=== PATIENT | female | born 1935 | race Caucasian/White ===

== ENCOUNTER 2024-09-05 09:35 | Emergency (ER) | payer MEDICARE, SELFPAY ==
[2024-09-05 09:44] VITALS: BP 88/63
--- NOTE | 2024-09-05 10:01 | ED.GENMED ---
History of Present Illness
<Cory Wilkerson DO - Last Filed: 09/05/24 15:59>
General
Chief Complaint: Weakness
Source: patient, spouse and ambulance crew
Exam Limitations: none
Nursing documentation reviewed up to this point in time: agreed with
History of Present Illness
History of Present Illness:
88-year-old female presents emergency department due to fatigue, exhaustion and low back pain for 1 week.
Past History
<VY Yanez - Last Filed: 09/05/24 15:05>
Past History
ED Past Medical History: HTN, Hypercholesterolemia, [place], Hypothyroidism and Other (dementia)
ED Past Surgical History: Gynecological (Hysterectomy, Bilateral tubal ligation)
Social History
Tobacco: Non-smoker
Alcohol: Occasional
Drug: None
Personal:
Review of Systems
<Cory Wilkerson, DO - Last Filed: 09/05/24 15:59>
Review of Systems
Allergies reviewed?: Yes
All Other Systems: Not applicable
Constitutional: Reports fatigue
EENT: Reports no symptoms
Respiratory: Reports no symptoms
Cardiac: Reports no symptoms
ABD/GI: Reports no symptoms
: Reports no symptoms
Musculoskeletal: Reports back pain
Skin: Reports no symptoms
Neurological: Reports weakness
Endocrine: Reports no symptoms
Hematologic/Lymphatic: Reports no symptoms
Psychiatric: Reports no symptoms
Phy Exam
<Cory Wilkerson DO - Last Filed: 09/05/24 15:59>
Physical Exam
Physical Exam:
Physical Exam
General: no apparent distress, not acutely ill
Neck: supple. no meningeal signs. normal posterior pharynx
Heart: s1/s2 tachycardia, irregular rhythm, no murmur. equal radial
pulses.
HEENT: Pupils equal round reactive to light, EOMI
Lungs: no acute respiratory distress. clear bilaterally
Abdomen: normal bowel sounds. not tender. no CVAT
Neuro: alert and oriented. no focal neurological deficits cranial nerves II through XII intact
Skin: no rash
Psychiatric: well kept. interactive and cooperative
Extremities: no edema. no calf tenderness. negative homans. good distal pulses
Course
<Cory Wilkerson, DO - Last Filed: 09/05/24 15:59>
Orders/Labs/Results
Orders:
Orders
09/05/24 10:11
Electrocardiogram (*1) Urgent
Reason for Study: Fatigue / Weakness
09/05/24 10:12
EKG- Treatment ONCE
09/05/24 10:16
EKG- Treatment ONCE
IV Insert/Care/Rem.- Treatment PRN
09/05/24 10:17
Electrocardiogram (*1) Urgent
Reason for Study: Fatigue / Weakness
CMP [Comprehensive Metabolic Panel] Urgent
Complete Blood Count/With Diff Urgent
09/05/24 10:23
COVID-19 Antigen Urgent
Source: Nasal Swab
Influenza A+B Rapid Molecular Urgent
MARCE Source: Nasal Swab
Specimen Description:
09/05/24 11:34
EKG- Treatment ONCE
09/05/24 12:41
Potassium Chloride 10% Elixir [KCl Elixir] 40 meq PO NOW STA
09/05/24 13:23
Urinalysis Reflex To Culture Urgent
Date Specimen was Collected: 09/05/24
Time Specimen was Collected: 13:18
Urine Microscopic Reflex Cult Urgent
09/05/24 13:26
0.9% Sodium Chloride 1000 ml [Nss] 1,000 ml IV BOLUS
Abnormal Lab Results
09/05/24 09/05/24
10:17 13:23
MPV 10.6 H fL
(7.4-10.4)
Absolute Monos (auto) 0.8 H 10^3/uL
(0.1-0.6)
Monocytes % 9.4 H %
(1.7-9.3)
Potassium 3.3 L mmol/L
(3.5-5.1)
BUN 28 H mg/dl
(7-17)
Glucose 143 H mg/dl
(70-99)
Leukocyte Esterase Rfl Trace A
(Negative)
Urine Bacteria (Reflex) Few A
(Negative)
09/05/24 10:17
09/05/24 10:17
Vital Signs
Initial and Last Documented VS:
Initial Vital Signs
Temp Pulse Resp BP Pulse Ox
98.5 F 70 18 88/63 95
09/05/24 09:44 09/05/24 09:44 09/05/24 09:44 09/05/24 09:44 09/05/24 09:44
Last Documented Vital Signs
Temp Pulse Resp BP Pulse Ox
98.5 F 68 18 110/66 99
09/05/24 09:44 09/05/24 14:32 09/05/24 14:32 09/05/24 14:32 09/05/24 14:32
<VY Yanez - Last Filed: 09/05/24 15:05>
Orders/Labs/Results
Orders:
Orders
09/05/24 10:11
Electrocardiogram (*1) Urgent
Reason for Study: Fatigue / Weakness
09/05/24 10:12
EKG- Treatment ONCE
09/05/24 10:16
EKG- Treatment ONCE
IV Insert/Care/Rem.- Treatment PRN
09/05/24 10:17
Electrocardiogram (*1) Urgent
Reason for Study: Fatigue / Weakness
CMP [Comprehensive Metabolic Panel] Urgent
Complete Blood Count/With Diff Urgent
09/05/24 10:23
COVID-19 Antigen Urgent
Source: Nasal Swab
Influenza A+B Rapid Molecular Urgent
MARCE Source: Nasal Swab
Specimen Description:
09/05/24 11:34
EKG- Treatment ONCE
09/05/24 12:41
Potassium Chloride 10% Elixir [KCl Elixir] 40 meq PO NOW STA
09/05/24 13:23
Urinalysis Reflex To Culture Urgent
Date Specimen was Collected: 09/05/24
Time Specimen was Collected: 13:18
Urine Microscopic Reflex Cult Urgent
09/05/24 13:26
0.9% Sodium Chloride 1000 ml [Nss] 1,000 ml IV BOLUS
Abnormal Lab Results
09/05/24 09/05/24
10:17 13:23
MPV 10.6 H fL
(7.4-10.4)
Absolute Monos (auto) 0.8 H 10^3/uL
(0.1-0.6)
Monocytes % 9.4 H %
(1.7-9.3)
Potassium 3.3 L mmol/L
(3.5-5.1)
BUN 28 H mg/dl
(7-17)
Glucose 143 H mg/dl
(70-99)
Leukocyte Esterase Rfl Trace A
(Negative)
Urine Bacteria (Reflex) Few A
(Negative)
09/05/24 10:17
09/05/24 10:17
Vital Signs
Initial and Last Documented VS:
Initial Vital Signs
Temp Pulse Resp BP Pulse Ox
98.5 F 70 18 88/63 95
09/05/24 09:44 09/05/24 09:44 09/05/24 09:44 09/05/24 09:44 09/05/24 09:44
Last Documented Vital Signs
Temp Pulse Resp BP Pulse Ox
98.5 F 68 18 110/66 99
09/05/24 09:44 09/05/24 14:32 09/05/24 14:32 09/05/24 14:32 09/05/24 14:32
<Cory Wilkerson, DO - Last Filed: 09/05/24 15:59>
MDM/Problems Addressed
Differential Diagnosis Includes:
Influenza, COVID, hypovolemia
MDM/Problems Addressed:
88-year-old female with hypovolemia, improved after IV fluids. Atrial fibrillation, spontaneously cardioverted. Patient anticoagulated. No palpable pulsatile mass. Patient stable for discharge.
Chronic conditions affecting care: HTN and Arrhythmia
Acute Exacerbation and/or Progression of Chronic Illness: Arrhythmia
<Cory Wilkerson, DO - Last Filed: 09/05/24 15:59>
*Pulse Oximetry
Patient hypoxic: no
*EKG
Interpreted by ED Provider?: Yes
EKG Intrepretation Date: 09/05/24
EKG Intrepretation Time: 10:18
Interpretation: abnormal
Comparison EKG: changes noted
Heart Rate: 117
Rate: tachycardiac
Rhythm: a-fib
[place]: left axis deviation
Interval: normal interval
QRS Pattern: normal QRS
Ischemia: no ischemia
*Air Breaker Operator Interpretation
Rate: tachycardiac
Interpretation: abnormal
Heart Rate: 118
Rhythm: a-fib
*Critical Care Note
Total Time (30-74mins, 75-104mins- exclusive of procedures): 30
comment:
Critical care statement: A total of 30 minutes of critical care time was provided for this patient. This includes management of unstable vital signs, evaluation of the patient at bedside, reviewing the patient's pertinent medical records, discussion
with consultants, review of old EKGs and review of pertinent medical records. This time with separate from time utilized to perform the aforementioned documented procedures
Data Reviewed
Further Testing Considered But Not Given:
CT abdomen pelvis not indicated
<Cory Wilkerson DO - Last Filed: 09/05/24 15:59>
Patient Management
Social determinants of health affecting care: Living situation and Strong social support
Escalation/DeEscalation of care consider admission/obs:
Admit not indicated
ED Attending Note
<VY Yanez - Last Filed: 09/05/24 15:05>
-
Portions of this chart may have been created with voice recognition software.� Occasional wrong word or��sound alike� substitutions may have occurred due to the inherent limitations of voice recognition software.
Discharge Plan
Departure
Patient Disposition: Home (Routine Discharge)
Date of Disposition: 09/05/24
Time of Disposition: 14:23
Patient with high blood pressure during this ER visit?: No
Condition: Good
Discharge Problem:
Hypovolemia, Atrial fibrillation with rapid ventricular response
Instructions: Generalized Weakness (DC), Atrial fibrillation - Discharge instructions
Prescriptions:
No Action
sertraline 50 mg Tablet
50 mg PO DAILY
atorvastatin [Lipitor] 10 mg Tablet
10 mg PO HS
metoprolol succinate [Toprol XL] 50 mg Tablet Extended Release 24 Hr
25 mg PO DAILY
donepezil 10 mg Tablet
10 mg PO HS
levothyroxine [Synthroid] 50 mcg Tablet
50 mcg PO DAILY
gabapentin 100 mg Capsule
100 mg PO HS
hydrochlorothiazide 12.5 mg Tablet
12.5 mg PO DAILY
Eliquis 5 mg Tablet
5 mg PO BID
Referrals:
Aristeo Desai MD [Family Provider] - Call in 1-3 days for appt
Interventions
Interventions:
*Risk Screen - Suicide Last Done: 09/05/24 09:44
*General Assessment Last Done: 09/05/24 09:44
*Neglect/Abuse Screening Last Done: 09/05/24 10:12
ED- Fall Risk Assessment Last Done: 09/05/24 10:12
*ED COVID-19 Vaccine History Last Done: 09/05/24 09:44
*Nursing Disposition Last Done: 09/05/24 14:32
ED- Cardiac Assessment Last Done: 09/05/24 10:12
ED- Neurological Assessment Last Done: 09/05/24 10:12
ED- Pulmonary Assessment Last Done: 09/05/24 10:12
Discharge Date and Time
Discharge Date/Time: 09/05/24 14:35
Print Language: TURKISH
[2024-09-05 10:12] VITALS: BMI 17.6
[2024-09-05 10:20] VITALS: BP 117/60
[2024-09-05 10:34] LABS: % Basophils 0.9 % (0-2); % Eosinophils 1.5 % (0-6); % Immature Granulocytes 0.3 % (0-0.5); % Lymphocytes 26.4 % (20.5-51.1); % Monocytes 9.4 % (1.7-9.3); % Neutrophils 61.5 % (42.2-75.2); Absolute Basophils 0.1 10^3/uL (0-0.2); Absolute Eosinophils 0.1 10^3/uL (0-0.7); Absolute Lymphocytes 2.3 10^3/uL (1.2-3.4); Absolute Monocytes 0.8 10^3/uL (0.1-0.6); Absolute Neutrophils 5.5 10^3/uL (1.4-6.5); Hematocrit 43.9 % (37.0-47.0); Hemoglobin 14.8 g/dL (12.0-16.0); Mean Corp Hgb Conc. 33.7 g/dL (33.0-37.0); Mean Corpuscular Volume 91.8 fL (81.0-99.0); Mean Platelet Volume 10.6 fL (7.4-10.4); Nucleated Red Blood Cells % 0 %; Platelet Count 273 10^3/uL (130-400); Red Blood Cell Count 4.78 10^6/uL (4.20-5.40); White Blood Cell Count 8.9 10^3/uL (4.8-10.8)
[2024-09-05 10:56] LABS: COVID-19 Antigen Negative (Negative)
[2024-09-05 11:00] VITALS: BP 108/59
[2024-09-05 11:04] LABS: ALT (SGPT) 22 U/L (0-35); AST (SGOT) 31 U/L (14-36); Albumin 4.1 g/dl (3.5-5.0); Alkaline Phosphatase 104 U/L (38-126); Blood Urea Nitrogen 28 mg/dl (7-17); Calcium 9.1 mg/dl (8.4-10.2); Carbon Dioxide 25 mmol/L (22-30); Chloride 100 mmol/L (98-107); Estimated Creatinine Clearance 30 ml/min; Glucose 143 mg/dl (70-99); Potassium 3.3 mmol/L (3.5-5.1); Sodium 138 mmol/L (135-145); Total Bilirubin 0.9 mg/dl (0.2-1.3); Total Protein 6.8 g/dl (6.3-8.2); eGFR 54.53
[2024-09-05 12:00] VITALS: BP 93/32
[2024-09-05] MEDS: KCL ELIXIR 40 MEQ PO (12:51)
[2024-09-05 13:09] VITALS: BP 102/50
[2024-09-05] MEDS: NSS 1000 IV (13:29)
[2024-09-05 13:33] LABS: Urine Albumin Trace (Neg - Trace); Urine Bilirubin Negative (Negative); Urine Character Clear (Clear); Urine Color Yellow; Urine Glucose Negative (Negative); Urine Ketone Negative (Negative); Urine Leukocyte Trace (Negative); Urine Nitrite Negative (Negative); Urine Occult Blood Negative (Negative); Urine Specific Gravity 1.015 (<1.030); Urine Urobilinogen Negative (Neg - 1+)
[2024-09-05 14:05] LABS: Urine Bacteria Few (Negative); Urine Red Blood Cell 0-2 /HPF (0-2); Urine Squamous Cell >30 /LPF (Few)
[2024-09-05 14:32] VITALS: BP 110/66
== END 2024-09-05 14:35 | disposition home or self-care (01) ==
LOC: EMR 09:35
PROVIDERS: EMERGENCY PHYSICIAN Emergency Medicine; FAMILY PHYSICIAN Internal Medicine
DX: I48.91 Unspecified atrial fibrillation (principal); E86.1 Hypovolemia; E78.00 Pure hypercholesterolemia, unspecified; I10 Essential (primary) hypertension; E03.9 Hypothyroidism, unspecified; F03.90 Unspecified dementia, unspecified severity, without behavioral disturbance, psychotic disturbance, mood disturbance, and anxiety
CPT/HCPCS: 99291; 96360; 80053; 81003; 81015; 85025; 87502; 87811; 93005